=== PATIENT | female | born 1980 | race Caucasian/White ===

== ENCOUNTER 2017-01-02 02:15 | Inpatient (IN) | payer OTHER ==
[2017-01-02 02:16] VITALS: BMI 26.6
--- NOTE | 2017-01-02 02:46 | C.PDOC ---
History Of Present Illness pt was medically cleared at [facility] and was accepted in transfer by dr henley. patient pleasant and cooperative Time Seen by Provider: 01/02/17 02:43 Chief Complaint (Nursing): Psychiatric Evaluation History Per: Patient History/Exam Limitations: no limitations Onset/Duration Of Symptoms: Days Current Symptoms Are (Timing): Still Present Suicide/Self Injury Attempted (Context): None Modifying Factor(s): None Severity: Moderate Pain Scale Rating Of: 4 Associated Symptoms: Anxiety Involuntary Hold By: None Recent travel outside of the [place]: No Additional History Per: Patient, Family Past Medical History Reviewed: Historical Data, Nursing Documentation, Vital Signs Vital Signs: Last Vital Signs Temp 97.7 F 01/02/17 02:22 Pulse 91 H 01/02/17 02:22 Resp 16 01/02/17 02:22 BP 138/93 H 01/02/17 02:22 Pulse Ox 100 01/02/17 02:22 - Medical History PMH: Anxiety Denies: Depression Family History: States: No Known Family Hx - Social History Hx Tobacco Use: No Hx Alcohol Use: Yes Hx Substance Use: No Review Of Systems Constitutional: Negative for: Fever, Chills Cardiovascular: Negative for: Chest Pain Respiratory: Negative for: Shortness of Breath Gastrointestinal: Negative for: Nausea Genitourinary: Negative for: Hematuria Musculoskeletal: Negative for: Back Pain Skin: Negative for: Rash Neurological: Negative for: Weakness Psych: Positive for: Anxiety Physical Exam - Physical Exam Appears: Non-toxic, No Acute Distress Skin: Warm, Dry Chest: Symmetrical Cardiovascular: Rhythm Regular Respiratory: No Rales, No Rhonchi, No Wheezing Gastrointestinal/Abdominal: Soft, No Tenderness Extremity: Normal ROM Neurological/Psych: Oriented x3, Normal Speech, Normal Cognition Gait: Steady ED Course And Treatment O2 Sat by Pulse Oximetry: 100 Pulse Ox Interpretation: Normal Disposition Discussed With : Mitch Henley Comment: accepted the pt on his service and took over the care at 2:44 AM Doctor Will See Patient In The: Hospital Counseled Patient/Family Regarding: Studies Performed, Diagnosis - Disposition Disposition: HOSPITALIZED Disposition Time: 02:44 Condition: FAIR - POA Present On Arrival: None - Clinical Impression Clinical Impression: Anxiety Decision To Admit - Pt Status Changed To: Hospital Disposition Of: Inpatient - Admit Certification Admit to Inpatient:: After my assessment, the patient will require hospitalization for at least two midnights. This is because of the severity of symptoms shown, intensity of services needed, and/or the medical risk in this patient being treated as an outpatient. - InPatient: Physician Admission Certification: I certify that this patient requires 2 or more midnights of care for the following reason:: After my assessment, the patient will require hospitalization for at least two midnights. This is because of the severity of symptoms shown, intensity of services needed, and/or the medical risk in this patient being treated as an outpatient. - . Bed Request Type: Psychiatry Admitting Physician: Mitch Henley Patient Diagnosis: Anxiety
--- NOTE | 2017-01-02 18:08 | PCM.PSYCH ---
Initial Psychiatric Evaluation - Initial Psychiatric Evaluation Type of Admission: Voluntary Legal Status: Capacity Chief Complaint (in patient's own words): I was given poison someone. I think I will any minute. History of Present Illness and Precipitating Events: Patient is a 36 years old, , female with history of depression and ADHD was admitted for disorganized thoughts. It was very difficult to get history from the patient. Patient was very circumstantial. Her thoughts were revolving around different things. Patient needed frequent redirections to come back to the topic. Patient reported that she was depressed and the past and was getting some counseling. Patient reported that her problem is obesity. About 2 weeks ago she was started on Topamax by Dr. Hudson rhodes. Patient think that would Topamax she had some adverse affects. Patient also believed that she has some permanent braces for her teeth and the metal of the brace react with Topamax causing some kind of poison and this poison is killing her. Later patient reported that she think someone was giving her poison and she will any moment. Patient made and other statement that my thinks I'm a fraud. Couldn't elaborate further. His some moment patient appeared to speak to her, but appeared internally preoccupied. Patient also reported that she is depressed with decreased sleep and appetite. No further information was obtained. Patient provided number of her and her father. Called. The family provided some information that patient has history of depression for many years and in the past patient was on some antidepressives including Zoloft. Patient also has history of ADHD for that she was taking different medications including Concerta and Adderall in the past. Currently she is not on any medications because of no insurance. Family also reported that patient was stressed for last few days because of her marriage. Reported that 2 days ago patient came to visit family in [place] from [place] and according to family patient was thinking that her neighbors in the [place] her after her and also some undercover police officers are watching her. No one inflammations were obtained from the family. Current Medications: Active Medications Generic Name Dose Route Start Last Admin Trade Name Freq PRN Reason Stop Dose Admin Benztropine Mesylate 0.5 mg 01/02/17 18:00 01/02/17 17:19 Cogentin PO 0.5 mg BID SABINA Administration Haloperidol 5 mg 01/02/17 14:59 05/29/17 15:09 Haldol PO 5 mg Q6 PRN Administration Agitation Hydroxyzine HCl 25 mg 01/02/17 05:21 01/02/17 14:30 Atarax PO 25 mg Q4H PRN Administration Anxiety Lorazepam 1 mg 01/02/17 14:53 01/02/17 16:05 Ativan PO 1 mg Q6 PRN Administration Agitation Risperidone 1 mg 01/02/17 18:00 01/02/17 17:19 Risperdal Tab PO 1 mg BID SABINA Administration Trazodone HCl 50 mg 01/02/17 22:00 Desyrel PO HS SABINA Past Psychiatric History - Past Psychiatric History History of Abuse: None reported History of ETOH/Drug Use: None reported History of Family Illness: None reported Pertinent Medical Hx (Current Medical&Sleep Prob, Allergies): Allergies Allergy/AdvReac Type Severity Reaction Status Date / Time amphetamine [From Adderall] Allergy FATIGUE Verified 01/01/17 15:56 dextroamphetamine Allergy FATIGUE Verified 01/01/17 15:56 [From Adderall] Sulfa (Sulfonamide Allergy Verified 01/02/17 02:24 Antibiotics) topiramate [From Topamax] AdvReac DIZZINESS Verified 01/02/17 02:24 No Known Home Med 10/16/12 Review of Systems - Psychiatric Psychiatric: Paranoia Mental Status Examination - Personal Presentation Personal Presentation: Looks stated age - Affect Affect: Depressed - Motor Activity Motor Activity: Calm - Reliability in Providing Information Reliability in Providing Information: Poor, due to alteration in thoughts - Speech Speech: Disorganized, Tangential - Mood Mood: Depressed - Formal Thought Process Formal Thought Process: Delusions, Loosening of associations, Flight of ideas - Hallucinations/Delusions Hallucinations: Other (None reported) Delusions: Persecution - Obsessions/Compulsions Obsessions: None Compulsions: None - Cognitive Functions Orientation: Person, Place, Situation, Time Sensorium: Alert Attention/Concentration: Attentive Estimate of Intelligence: Average Judgement: Imparied, as evidence by: Lack of insight into illness Memory: Recent intact, as evidence by: Other, Remote intact, as evidenced by: Other - Risk Risk: Diminished functioning - Strength & Assets Inventory Strength & Assets Inventory: Family support, Cooperative - Limitations Limitations: Other DSM 5 DX - DSM 5 DSM 5 Diagnosis: Delusional disorder Provisional: Schizoaffective disorder - Recommended/Plan of Treatment Treatment Recommendations and Plan of Treatment: Patient education Supportive therapy We'll start Risperdal 1 mg twice a day Haldol 5 mg every 6 when necessary for agitation Ativan 1 mg by mouth every 6 when necessary for agitation/anxiety Atarax to 5 mg by mouth every 6 or anxiety Cogentin 0.5 mg twice a day Projected ELOS: 8-10 days - Smoking Cessation Smoking Cessation Initiated: No Reason for not providing: Patient doesn't smoke cigarettes
--- NOTE | 2017-01-03 09:54 | PCM.PYCHPN ---
Psychiatric Progress Note - Psychiatric Progress Note Patient seen today, length of contact: 20 min Patient Chief Complaint: 'People are trying to kill me. I am not usually like this, but people are evil.' Problems Identified/Issues Discussed: Patient is a 36 year old [place] woman with a history of depression and ADHD who lives with her in [place]. Patient does not work. History from patient was very difficult to retrieve due to her disorganized thinking, speech , and behavior. Pt states she is visiting her parents and siblings in [place] because her mother and brother were going to [facility] due to a in the family. Patient states she was also helping her mom with her Medicaid as it was expiring. Pt states she had a nervous breakdown due to a side effect of her medication. Pt states that she was gaining weight which was causing marital problems. She recieved Topmax from her family doctor for weight loss. Pt states "I know this is an anti-seizure drug so I knew I could have some side effects and I think I am having side effects of the anti-seizure medication because it can affect the brain." Patient states her hands felt clammy and that her head got an electrical shock. Patient believes she has metal wiring in her mouth and "if someone attaches electrodes to me, they could kill me." Pt seems very dazed and confused, is repeating words, and sitting with her eyes closed. Pt advised to lie down for a bit, at which she states, "If I close my eyes someone will come here and smother me with a pillow. People are evil. Why do I have to be so important? Why can't people just ignore me?" Patient very disorganized and very circumstantial and tangential. Pt does not portray an congruent train of thought. Pt repeats phrases and is internally preoccupied. Pt is very suspicious and paranoid that people want to hurt her and kill her. Medication Change: Yes (increase Risperdal, start gabapentin) Medical Record Reviewed: Yes Mental Status Examination - Cognitive Function Orientation: Person, Place, Situation, Time Memory: Intact Attention: Poor Concentration: Poor Association: Loose Fund of Knowledge: Poor - Mood Mood: Anxious - Affect Affect: Broad, Constricted - Speech Speech: Slurred, Stammering Additional comments: Repetitive - Formal Thought Process Formal Thought Process: Delusions, Paranoia, Loosening of associations, Flight of ideas, Circumstantial - Suicidal Ideation Suicidal Ideation: No - Homicidal Ideation Homicidal Ideation: No Goal/Treatment Plan - Goal/Treatment Plan Need for Continued Stay: Discharge may exacerbated symptoms, Severe functional impairment Progress Toward Problem(s) and Goals/Treatment Plan: Delusional disorder R/O Schizoaffective disorder depressed type Patient education Supportive therapy Risperdal 1 mg daily Risperdal 2 mg QHS Cogentin 0.5 mg twice a day Start Klonopin 1 mg twice a day Haldol 5 mg every 6 when necessary for agitation Ativan 1 mg by mouth every 6 when necessary for agitation/anxiety Atarax to 5 mg by mouth every 6 or anxiety - Smoking Cessation Smoking Cessation Initiated: No
--- NOTE | 2017-01-04 11:51 | PCM.PYCHPN ---
Psychiatric Progress Note - Psychiatric Progress Note Patient seen today, length of contact: 20 min Patient Chief Complaint: 'People are trying to kill me. I am not usually like this, but people are evil.' Problems Identified/Issues Discussed: Patient seen and evaluated, chart reviewed and discussed with the nurse. Patient remained disorganized and internally preoccupied. Patient remained isolated, confined and withdrawn. As per staff she is still talking to herself and appears internally preoccupied. Patient still appears paranoid and delusional. she reports anxiety and irritability, but reports improvement since yesterday. She is taking medication and denies any side effects. Supportive therapy and psychoeducation were given. Medication Change: Yes (increase Risperdal, start gabapentin) Medical Record Reviewed: Yes Mental Status Examination - Cognitive Function Orientation: Person, Place, Situation, Time Memory: Intact Attention: Poor Concentration: Poor Association: Loose Fund of Knowledge: Poor - Mood Mood: Anxious - Affect Affect: Broad, Constricted - Speech Speech: Slurred, Stammering - Formal Thought Process Formal Thought Process: Delusions, Paranoia, Loosening of associations, Flight of ideas, Circumstantial - Suicidal Ideation Suicidal Ideation: No - Homicidal Ideation Homicidal Ideation: No Goal/Treatment Plan - Goal/Treatment Plan Need for Continued Stay: Discharge may exacerbated symptoms, Severe functional impairment Progress Toward Problem(s) and Goals/Treatment Plan: Delusional disorder R/O Schizoaffective disorder depressed type Patient education Supportive therapy Risperdal 1 mg daily Risperdal 2 mg QHS Cogentin 0.5 mg twice a day Start Klonopin 1 mg twice a day Haldol 5 mg every 6 when necessary for agitation Ativan 1 mg by mouth every 6 when necessary for agitation/anxiety Atarax to 5 mg by mouth every 6 or anxiety gabapentin 100 mg by mouth 3 times a day
--- NOTE | 2017-01-05 14:10 | PCM.PYCHPN ---
Psychiatric Progress Note - Psychiatric Progress Note Patient seen today, length of contact: 20 min Patient Chief Complaint: People are out to get me Problems Identified/Issues Discussed: Patient seen and evaluated, chart reviewed and discussed with the nurse. Patient states that her mind is racing and she cannot control her thoughts and that her brain is "hyperactive". She feels scared that someone will try to kill her, saying, "If I , you have to know it was not a suicide. It was because someone murdered me. Make sure they don't snap my neck." Patient still displays suspicious and paranoid behavior, asking for a print out of the medications she is getting and their side effects. Patient states her family came to visit yesterday which went very well. Patient states on discharge, she plans to go back to [place] and follow up with a psychiatrist there. Patient participating in group therapy and talking to others. Supportive therapy and psychoeducation were given. Medication Change: Yes (increase trazodone, increase Risperdal) Medical Record Reviewed: Yes Mental Status Examination - Cognitive Function Orientation: Person, Place, Situation, Time Memory: Intact Attention: Poor Concentration: Poor Association: Loose Fund of Knowledge: Poor - Mood Mood: Anxious - Affect Affect: Broad, Constricted - Speech Speech: Slurred, Stammering - Formal Thought Process Formal Thought Process: Delusions, Paranoia, Loosening of associations, Flight of ideas, Circumstantial - Suicidal Ideation Suicidal Ideation: No - Homicidal Ideation Homicidal Ideation: No Goal/Treatment Plan - Goal/Treatment Plan Need for Continued Stay: Discharge may exacerbated symptoms, Severe functional impairment Progress Toward Problem(s) and Goals/Treatment Plan: Brief psychotic disorder Patient education Supportive therapy Risperdal 2 mg daily Risperdal 2 mg QHS Cogentin 1 mg twice a day Klonopin 1 mg twice a day Trazodone 100 mg by mouth daily at bedtime Gabapentin 300 mg by mouth 2 times a day Haldol 5 mg every 6 when necessary for agitation Ativan 1 mg by mouth every 6 when necessary for agitation/anxiety Atarax 25 mg by mouth every 6 or anxiety
--- NOTE | 2017-01-06 12:20 | PCM.PYCHPN ---
Psychiatric Progress Note - Psychiatric Progress Note Patient seen today, length of contact: 20 min Patient Chief Complaint: My mind is more clear and focused Problems Identified/Issues Discussed: Patient seen and evaluated, chart reviewed and discussed with the nurse. Patient states she is feeling better and that her thoughts are less racing. She denies any hallucinations. She feels less paranoid and acknowledges that her thoughts were "extreme." She is still fearful that someone might hurt her but is less paranoid. Patient states her thoughts are more focused and clear. Patient withdrew 48 notice and agrees to stay for further treatment. She is receptive to being discharged to her home in [place] and plans to follow up with [facility] for psychiatry. Patient's medications are being slowly increased to optimize her dosages. Supportive therapy and psychoeducation were given. Medication Change: Yes (increase Risperdal) Medical Record Reviewed: Yes Mental Status Examination - Cognitive Function Orientation: Person, Place, Situation, Time Memory: Intact Attention: Poor Concentration: Poor Association: Loose Fund of Knowledge: Poor - Mood Mood: Anxious - Affect Affect: Broad, Constricted - Speech Speech: Slurred, Stammering - Formal Thought Process Formal Thought Process: Delusions, Paranoia, Loosening of associations, Flight of ideas, Circumstantial - Suicidal Ideation Suicidal Ideation: No - Homicidal Ideation Homicidal Ideation: No Goal/Treatment Plan - Goal/Treatment Plan Need for Continued Stay: Discharge may exacerbated symptoms, Severe functional impairment Progress Toward Problem(s) and Goals/Treatment Plan: Brief psychotic disorder CBT Patient education Supportive therapy, individual therapy and milieu therapy Risperdal 2 mg daily Risperdal 4 mg QHS Cogentin 1 mg twice a day Klonopin 1 mg three times a day Trazodone 100 mg by mouth daily at bedtime Gabapentin 300 mg by mouth 3 times a day Haldol 5 mg every 6 when necessary for agitation Ativan 1 mg by mouth every 6 when necessary for agitation/anxiety Atarax 25 mg by mouth every 6 or anxiety - Smoking Cessation Smoking Cessation Initiated: No
--- NOTE | 2017-01-07 16:59 | PCM.PYCHPN ---
Psychiatric Progress Note - Psychiatric Progress Note Patient seen today, length of contact: 15 minutes Patient Chief Complaint: I'm feeling better. My thoughts are more clear Problems Identified/Issues Discussed: Patient seen. Chart reviewed. Case discussed with the staff. Issues related to illness and treatment were discussed with the patient. Reported compliant with treatment with no adverse affects. Tolerating treatment well. Patient appeared more clear in her thoughts but still delusional. Patient appeared drowsy. We will reduce dose of the Klonopin from 1 mg 3 times a day to 1 mg twice a day. At the time of evaluation, was awake alert oriented 3, no auditory or visual hallucinations, no suicidal ideations or homicidal ideations. Patient still has some persecutory delusions. Medical Problems: None reported Diagnostic Results: Reviewed DSM 5 Symptoms Update: Some improvement with treatment Medication Change: No Medical Record Reviewed: Yes Mental Status Examination - Cognitive Function Orientation: Person, Place, Situation, Time Memory: Intact Attention: WNL Concentration: WNL Association: WNL Fund of Knowledge: WNL Decription of patient's judgement and insights: Fair - Mood Mood: Anxious - Affect Affect: Other (Appropriate) - Speech Speech: Appropriate - Formal Thought Process Formal Thought Process: Loosening of associations, Flight of ideas - Suicidal Ideation Suicidal Ideation: No - Homicidal Ideation Homicidal Ideation: No Goal/Treatment Plan - Goal/Treatment Plan Need for Continued Stay: Remain at risks for inpatient hospitalization, Discharge may exacerbated symptoms, Severe functional impairment Progress Toward Problem(s) and Goals/Treatment Plan: Patient education Supportive therapy We will reduce the dose of Klonopin from 1 mg 3 times a day to 1 mg twice a day Continue rest of the treatment as before Estimated Date of D/C: 01/09/17 - Smoking Cessation Smoking Cessation Initiated: No Reason for not providing: Patient does not smokes cigarettes
--- NOTE | 2017-01-08 15:32 | PCM.PYCHPN ---
Psychiatric Progress Note - Psychiatric Progress Note Patient seen today, length of contact: 15 minutes Patient Chief Complaint: I'm feeling better. Problems Identified/Issues Discussed: Patient seen. Chart reviewed. Case discussed with the staff. Issues related to illness and treatment were discussed with the patient. Reported compliant with treatment with no adverse affects. Tolerating treatment well. Patient appeared more clear in her thoughts but still delusional.today patient appeared more talkative .staff also confirmed .Will observe and if necessary we'll change the gabapentin to another mood stabilizer. Patient was still preoccupied with medications and their side effects. ,At the time of evaluation, was awake alert oriented 3, no auditory or visual hallucinations, no suicidal ideations or homicidal ideations. Patient still has some persecutory delusions. Medical Problems: None reported Diagnostic Results: Reviewed DSM 5 Symptoms Update: Some improvement with treatment Medication Change: No Medical Record Reviewed: Yes Mental Status Examination - Cognitive Function Orientation: Person, Place, Situation, Time Memory: Intact Attention: WNL Concentration: WNL Association: WNL Fund of Knowledge: WN Decription of patient's judgement and insights: Fair - Mood Mood: Anxious - Affect Affect: Other (Appropriate) - Speech Speech: Appropriate - Formal Thought Process Formal Thought Process: Loosening of associations, Flight of ideas - Suicidal Ideation Suicidal Ideation: No - Homicidal Ideation Homicidal Ideation: No Goal/Treatment Plan - Goal/Treatment Plan Need for Continued Stay: Remain at risks for inpatient hospitalization, Discharge may exacerbated symptoms, Severe functional impairment Progress Toward Problem(s) and Goals/Treatment Plan: Patient education Supportive therapy Continue treatment as before Estimated Date of D/C: 01/09/17 - Smoking Cessation Smoking Cessation Initiated: No
--- NOTE | 2017-01-09 10:08 | PCM.PYCHPN ---
Psychiatric Progress Note - Psychiatric Progress Note Patient seen today, length of contact: 15 minutes Patient Chief Complaint: "I feel okay." Problems Identified/Issues Discussed: Patient seen and evaluated, chart reviewed and discussed with the nurse. The patient remained disorganized and internally preoccupied. She is still paranoid about her family that they are creating misunderstandings between her and her . She still appears delusional and suspicious. She appears more kempt but continued to have loose associations and hypertalkative. Patient participating in group therapy and talking to others. Supportive therapy and psychoeducation were given. Medication Change: Yes (start lithium) Medical Record Reviewed: Yes Mental Status Examination - Cognitive Function Orientation: Person, Place, Situation, Time Memory: Intact Attention: WNL Concentration: Poor Association: Loose Fund of Knowledge: WNL - Mood Mood: Anxious - Affect Affect: Flat - Speech Speech: Soft - Formal Thought Process Formal Thought Process: Delusions (monotonus ), Loosening of associations, Flight of ideas - Suicidal Ideation Suicidal Ideation: No - Homicidal Ideation Homicidal Ideation: No Goal/Treatment Plan - Goal/Treatment Plan Need for Continued Stay: Remain at risks for inpatient hospitalization, Discharge may exacerbated symptoms, Severe functional impairment Progress Toward Problem(s) and Goals/Treatment Plan: Brief psychotic disorder Patient education Supportive therapy Risperdal 2 mg daily Risperdal 4 mg QHS Cogentin 1 mg twice a day Klonopin 1 mg twice a day Trazodone 100 mg by mouth daily at bedtime Gabapentin 300 mg by mouth 2 times a day Daniel 300 mg by mouth 3 times a day Haldol 5 mg every 6 when necessary for agitation Ativan 1 mg by mouth every 6 when necessary for agitation/anxiety Atarax 25 mg by mouth every 6 or anxiety Estimated Date of D/C: 01/09/17 - Smoking Cessation Smoking Cessation Initiated: No
--- NOTE | 2017-01-10 15:54 | PCM.PYCHPN ---
Psychiatric Progress Note - Psychiatric Progress Note Patient seen today, length of contact: 15 minutes Patient Chief Complaint: "I feel okay." Problems Identified/Issues Discussed: Patient seen and evaluated, chart reviewed and discussed with the nurse. As per the staff, pt became increasingly delusional and suspicious. She is still paranoid about her family that they are creating misunderstandings between her and her . zed and internally preoccupied.She still appears delusional and suspicious. She appears more kempt but continued to have loose associations and hypertalkative. Patient participating in group therapy and talking to others. Supportive therapy and psychoeducation were given. Medication Change: Yes (start lithium) Medical Record Reviewed: Yes Mental Status Examination - Cognitive Function Orientation: Person, Place, Situation, Time Memory: Intact Attention: WNL Concentration: WNL Association: WNL Fund of Knowledge: WNL - Mood Mood: Anxious - Affect Affect: Flat - Speech Speech: Soft - Formal Thought Process Formal Thought Process: Loosening of associations, Flight of ideas - Suicidal Ideation Suicidal Ideation: No - Homicidal Ideation Homicidal Ideation: No Goal/Treatment Plan - Goal/Treatment Plan Need for Continued Stay: Remain at risks for inpatient hospitalization, Discharge may exacerbated symptoms, Severe functional impairment Progress Toward Problem(s) and Goals/Treatment Plan: Brief psychotic disorder Patient education Supportive therapy Risperdal 2 mg daily Risperdal 4 mg QHS Cogentin 1 mg twice a day Klonopin 1 mg twice a day Trazodone 100 mg by mouth daily at bedtime Gabapentin 300 mg by mouth 2 times a day [place] 300 mg by mouth 3 times a day Haldol 5 mg every 6 when necessary for agitation Ativan 1 mg by mouth every 6 when necessary for agitation/anxiety Atarax 25 mg by mouth every 6 or anxiety Estimated Date of D/C: 01/09/17
[2017-01-11] MEDS ORDERED: Lithium Carbonate 150 MG CAP PO SCH (10:00)
--- NOTE | 2017-01-11 10:00 | PCM.PYCHPN ---
Psychiatric Progress Note - Psychiatric Progress Note Patient seen today, length of contact: 15 minutes Patient Chief Complaint: "I feel great." Problems Identified/Issues Discussed: Patient seen and evaluated, chart reviewed and discussed with the nurse. The patient states that she feels great and is no longer sad or depressed. She complains of a little bit of anxiety but says that the groups have helped. She says that she slept well last night and woke up refreshed early this morning. She denies any auditory or visual hallucinations, S/I, or H/I. 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 She says that she is charged with emotions and feels that she hasnt been true to herself. She states that she wants to go home to her in [place] and appears to not have grasped the reality of being from him. She appears to still be very disorganized with her thoughts and is hypertalkative. She is fixated on her , family, and medical school and is very paranoid about her healthcare. She has a flat affect but less depressed mood and continues to have loose associations. She appears to be kempt and puts effort into her appearance. She does not isolate herself and interacts daily with other patients. Patient participating in group therapy and talking to others. Supportive therapy and psychoeducation were given. Medication Change: Yes (increase lithium) Medical Record Reviewed: Yes Mental Status Examination - Cognitive Function Orientation: Person, Place, Situation, Time Memory: Intact Attention: WNL Concentration: Poor Association: Loose Fund of Knowledge: WNL - Mood Mood: Depressed, Anxious - Affect Affect: Constricted, Depressed - Speech Speech: Loud (labile), Soft - Formal Thought Process Formal Thought Process: Delusions, Paranoia, Loosening of associations, Flight of ideas - Suicidal Ideation Suicidal Ideation: No - Homicidal Ideation Homicidal Ideation: No Goal/Treatment Plan - Goal/Treatment Plan Need for Continued Stay: Remain at risks for inpatient hospitalization, Discharge may exacerbated symptoms, Severe functional impairment Progress Toward Problem(s) and Goals/Treatment Plan: Brief psychotic disorder Patient education Supportive therapy Risperdal 2 mg daily Risperdal 4 mg QHS Cogentin 1 mg twice a day Klonopin 1 mg twice a day Trazodone 100 mg by mouth daily at bedtime Gabapentin 300 mg by mouth 2 times a day [place] 450 mg by mouth 2 times a day Haldol 5 mg every 6 when necessary for agitation Ativan 1 mg by mouth every 6 when necessary for agitation/anxiety Atarax 25 mg by mouth every 6 or anxiety Estimated Date of D/C: 01/09/17 - Smoking Cessation Smoking Cessation Initiated: No
[2017-01-11] MEDS: Lithium Carbonate ER Tab 450 MG PO SCH ×2 (12:13→18:25)
[2017-01-11] MEDS ORDERED: Lithium Carbonate ER Tab 450 MG PO SCH (18:00)
[2017-01-12] MEDS: Lithium Carbonate ER Tab 450 MG PO SCH ×2 (10:17→17:36)
--- NOTE | 2017-01-12 11:38 | PCM.PYCHPN ---
Psychiatric Progress Note - Psychiatric Progress Note Patient seen today, length of contact: 15 minutes Patient Chief Complaint: "I feel aggravated." Problems Identified/Issues Discussed: Patient seen and evaluated, chart reviewed and discussed with the nurse. The patient states that she is feeling aggravated and anxious because she might have missed a job opportunity. She states that because she isn't allowed access to her cellphone, she missed a call for a job she would've taken. She also states that she is upset because she had to break her fast. She denies H/I, S/I , or hallucinations. She says that she is sleeping very well and the medications are helping her. She denies feelings of depression but is still feeling guilty. She is still really paranoid, hypertalkative and disorganized in her thoughts. She appears kempt and continues to put effort into her appearance. She socializes with the other patients and behaves compassionately to her roommate. Patient participating in group therapy and talking to others. Supportive therapy and psychoeducation were given. Medication Change: Yes (start haldol) Medical Record Reviewed: Yes Mental Status Examination - Cognitive Function Orientation: Person, Place, Situation, Time Memory: Intact Attention: WNL Concentration: Poor Association: Loose Fund of Knowledge: WNL - Mood Mood: Depressed, Anxious - Affect Affect: Constricted, Depressed - Speech Speech: Loud (labile) - Formal Thought Process Formal Thought Process: Delusions, Paranoia, Loosening of associations, Flight of ideas - Suicidal Ideation Suicidal Ideation: No - Homicidal Ideation Homicidal Ideation: No Goal/Treatment Plan - Goal/Treatment Plan Need for Continued Stay: Remain at risks for inpatient hospitalization, Discharge may exacerbated symptoms, Severe functional impairment Progress Toward Problem(s) and Goals/Treatment Plan: Brief psychotic disorder Patient education Supportive therapy Risperdal 2 mg daily Risperdal 4 mg QHS Haldol 5 mg by mouth twice Cogentin 1 mg twice a day Klonopin 1 mg twice a day Trazodone 100 mg by mouth daily at bedtime Gabapentin 300 mg by mouth 2 times a day [place] 450 mg by mouth 2 times a day Haldol 5 mg every 6 when necessary for agitation Ativan 1 mg by mouth every 6 when necessary for agitation/anxiety Atarax 25 mg by mouth every 6 or anxiety Estimated Date of D/C: 01/09/17
[2017-01-13 07:08] VITALS: RESP 18
[2017-01-13] MEDS: Lithium Carbonate ER Tab 450 MG PO SCH ×2 (09:56→17:19)
--- NOTE | 2017-01-13 11:43 | PCM.PYCHPN ---
Psychiatric Progress Note - Psychiatric Progress Note Patient seen today, length of contact: 15 minutes Patient Chief Complaint: "I'm not doing well." Problems Identified/Issues Discussed: Patient seen and evaluated, chart reviewed and discussed with the nurse. The patient states that she is not doing well. She says that she slept the entire night and feels disappointed in herself for not waking up early today. She states that she's been having strange dreams because she is afraid of losing her loved ones. She also says that she wishes to go home because she can' t afford to stay at the hospital for so long. She denies feeling depressed but says she feels guilty because she is unemployed and is always asking her family for money. She states that she is still motivated and has interest in daily activities. She continues to be extremely hypertlakative and has disorganized speech. She is very fixated and paranoid about losing weight and becoming employed in order to save her marriage. She continues to put effort into her appearance and interacts with the other patients. Supportive therapy and psychoeducation were given. Medication Change: Yes (Increase haldol, reduce Risperdal) Medical Record Reviewed: Yes Mental Status Examination - Cognitive Function Orientation: Person, Place, Situation, Time Memory: Intact Attention: WNL Concentration: Poor Association: Loose Fund of Knowledge: Poor - Mood Mood: Anxious - Affect Affect: Constricted - Speech Speech: Loud (labile) - Formal Thought Process Formal Thought Process: Delusions, Paranoia, Loosening of associations, Flight of ideas - Suicidal Ideation Suicidal Ideation: No - Homicidal Ideation Homicidal Ideation: No Goal/Treatment Plan - Goal/Treatment Plan Need for Continued Stay: Remain at risks for inpatient hospitalization, Discharge may exacerbated symptoms, Severe functional impairment Progress Toward Problem(s) and Goals/Treatment Plan: Brief psychotic disorder Patient education Supportive therapy Risperdal 2 mg po BID Haldol 10 mg by mouth twice daily Cogentin 1 mg twice a day Klonopin 1 mg twice a day Trazodone 100 mg by mouth daily at bedtime Gabapentin 300 mg by mouth 2 times a day [place] 450 mg by mouth 2 times a day Haldol 5 mg every 6 when necessary for agitation Ativan 1 mg by mouth every 6 when necessary for agitation/anxiety Atarax 25 mg by mouth every 6 or anxiety Estimated Date of D/C: 01/09/17 - Smoking Cessation Smoking Cessation Initiated: No
[2017-01-14 07:16] VITALS: O2SAT 95
[2017-01-14] MEDS: Lithium Carbonate ER Tab 450 MG PO SCH ×2 (09:48→21:40)
--- NOTE | 2017-01-14 09:57 | PCM.PYCHPN ---
Psychiatric Progress Note - Psychiatric Progress Note Patient seen today, length of contact: 15 minutes Patient Chief Complaint: "I'm not doing well." Problems Identified/Issues Discussed: Patient seen and evaluated, chart reviewed and discussed with the nurse. The patient states that she is not doing well. She says that she slept the entire night and feels disappointed in herself for not waking up early today. She states that she's been having strange dreams because she is afraid of losing her loved ones. She also says that she wishes to go home because she can' t afford to stay at the hospital for so long. She denies feeling depressed but says she feels guilty because she is unemployed and is always asking her family for money. She states that she is still motivated and has interest in daily activities. She continues to be extremely hypertlakative and has disorganized speech. She is very fixated and paranoid about losing weight and becoming employed in order to save her marriage. She continues to put effort into her appearance and interacts with the other patients. Spoke with the father # [phone] and brother # [phone]. Supportive therapy and psychoeducation were given. Medication Change: Yes (Increase haldol, reduce Risperdal) Medical Record Reviewed: Yes Mental Status Examination - Cognitive Function Orientation: Person, Place, Situation, Time Memory: Intact Attention: WNL Concentration: Poor Association: Loose Fund of Knowledge: Poor - Mood Mood: Anxious - Affect Affect: Constricted - Speech Speech: Loud (labile) - Formal Thought Process Formal Thought Process: Delusions, Paranoia, Loosening of associations, Flight of ideas - Suicidal Ideation Suicidal Ideation: No - Homicidal Ideation Homicidal Ideation: No Goal/Treatment Plan - Goal/Treatment Plan Need for Continued Stay: Remain at risks for inpatient hospitalization, Discharge may exacerbated symptoms, Severe functional impairment Progress Toward Problem(s) and Goals/Treatment Plan: Brief psychotic disorder Patient education Supportive therapy Risperdal 2 mg po BID Haldol 10 mg by mouth twice daily Cogentin 1 mg twice a day Klonopin 1 mg twice a day Trazodone 100 mg by mouth daily at bedtime Gabapentin 300 mg by mouth 2 times a day [place] 450 mg by mouth 2 times a day Haldol 5 mg every 6 when necessary for agitation Ativan 1 mg by mouth every 6 when necessary for agitation/anxiety Atarax 25 mg by mouth every 6 or anxiety Estimated Date of D/C: 01/09/17
[2017-01-15] MEDS: Lithium Carbonate ER Tab 450 MG PO SCH (09:41)
--- NOTE | 2017-01-16 11:21 | PCM.PYCHPN ---
Psychiatric Progress Note - Psychiatric Progress Note Patient seen today, length of contact: 15 minutes Patient Chief Complaint: "I feel great." Problems Identified/Issues Discussed: Patient seen and evaluated, chart reviewed and discussed with the nurse. The patient states that she is feeling great and wishes to be discharged to [facility] today. She denies any hallucinations, S/I, or H/I. However, she complains of anxiety from being around the other patients and feels they are having a negative effect on her. She states that she couldnt sleep because of them as well. She says that she is compliant with only some of her medications because she felt that she was being overmedicated. She says that some of the medications make her feel doped up. However, she agreed to receive a Haldol injection before being discharged tomorrow. She continues to be hypertalkative and has slightly disorganized speech. She appears to be doing better but is still a bit anxious and delusional about her divorce and going home to her . She continues to be kempt, interacts with the other patients, and speaks with appropriate affect. Supportive therapy and psychoeducation were given. Medication Change: Yes (Haldol Decanoate, reduce risperdal) Medical Record Reviewed: Yes Mental Status Examination - Cognitive Function Orientation: Person, Place, Situation, Time Memory: Intact Attention: WNL Concentration: Poor Association: Loose Fund of Knowledge: Poor - Mood Mood: Anxious - Affect Affect: Constricted - Speech Speech: Loud (labile) - Formal Thought Process Formal Thought Process: Delusions, Paranoia, Loosening of associations, Flight of ideas - Suicidal Ideation Suicidal Ideation: No - Homicidal Ideation Homicidal Ideation: No Goal/Treatment Plan - Goal/Treatment Plan Need for Continued Stay: Remain at risks for inpatient hospitalization, Discharge may exacerbated symptoms, Severe functional impairment Progress Toward Problem(s) and Goals/Treatment Plan: Brief psychotic disorder Patient education Supportive therapy Risperdal 1 mg po BID Haldol 10 mg by mouth twice daily Haldol Dec[place] 50 mg IM stat Cogentin 1 mg twice a day Klonopin 1 mg twice a day Trazodone 100 mg by mouth daily at bedtime Gabapentin 300 mg by mouth 2 times a day [place] 450 mg by mouth 2 times a day Haldol 5 mg every 6 when necessary for agitation Ativan 1 mg by mouth every 6 when necessary for agitation/anxiety Atarax 25 mg by mouth every 6 or anxiety Estimated Date of D/C: 01/09/17
--- NOTE | 2017-01-17 09:55 | PCM.PYCHPN ---
Psychiatric Progress Note - Psychiatric Progress Note Patient seen today, length of contact: 15 minutes Patient Chief Complaint: "I m feeling excited." Problems Identified/Issues Discussed: Patient seen and evaluated, chart reviewed and discussed with the nurse. The patient states that she is feeling excited about leaving today. She says that she has a good appetite and was able to sleep last night after taking Trazodone and Benadryl. She states that she has anxiety about the discharge process but wants to go home because she misses her . She says that she spoke to her last night and he said that hes moving in with his parents for about a month. She says that her wants her to lose weight and get a job before they can get back together. She states that she is compliant with her medications and is having no side effects. She denies S/I, H/ I, or hallucinations. The patient was upset after hearing that she would not be discharged today and wanted to invoke her patient rights. She stated that the patients here are worsening her anxiety and that she no longer wishes to stay here. However, after some discussion with her and her brother, she agreed to stay and continue with the Haldol shots. She continues to be hypertalkative but is doing much better. She is much calmer and motivated to get back to her life. She has appropriate affect and is kempt. However, she still seems delusional about having a relationship with her . Had a family meeting today with the brother. Supportive therapy and psychoeducation were given. Medication Change: Yes (Haldol Decanoate, discontinue risperdal) Medical Record Reviewed: Yes Mental Status Examination - Cognitive Function Orientation: Person, Place, Situation, Time Memory: Intact Attention: WNL Concentration: WNL Association: Loose Fund of Knowledge: WNL - Mood Mood: Anxious - Affect Affect: Other (Labile) - Speech Speech: Appropriate - Formal Thought Process Formal Thought Process: Delusions, Loosening of associations - Suicidal Ideation Suicidal Ideation: No - Homicidal Ideation Homicidal Ideation: No Goal/Treatment Plan - Goal/Treatment Plan Need for Continued Stay: Remain at risks for inpatient hospitalization, Discharge may exacerbated symptoms, Severe functional impairment Progress Toward Problem(s) and Goals/Treatment Plan: Brief psychotic disorder Patient education Supportive therapy D/C Risperdal 1 mg po BID Haldol 10 mg by mouth twice daily Haldol [place] 50 mg IM stat - next due Haldol Decanoate 50 +50 = 100 mg I/M ( 02-15-17) Cogentin 2 mg twice a day Trazodone 100 mg by mouth daily at bedtime [place] 600 mg by mouth 2 times a day Haldol 5 mg every 6 when necessary for agitation Ativan 1 mg by mouth every 6 when necessary for agitation/anxiety Atarax 25 mg by mouth every 6 or anxiety Estimated Date of D/C: 01/09/17 - Smoking Cessation Smoking Cessation Initiated: No
[2017-01-17 10:41] VITALS: TEMP 98
[2017-01-18 07:36] VITALS: BP 93/60; PULSE 90
--- NOTE | 2017-01-18 10:25 | PCM.PYCHDC ---
Mental Status Examination - Mental Status Examination Orientation: Person, Place, Situation, Time Memory: Intact Mood: Neutral Affect: Constricted Speech: Soft Attention: WNL Concentration: WNL Association: WNL Fund of Knowledge: WNL Formal Thought Process: No Impairment Description of patient's judgement and insight: good, fair Psychotic Thoughts and Behaviors: denies any AVH Suicidal Ideation: No Current Homicidal Ideation?: No Discharge Summary - Discharge Note Reason for Hospitalization: Patient is a 36 years old, , female with history of depression and ADHD was admitted for disorganized thoughts. It was very difficult to get history from the patient. Patient was very circumstantial. Her thoughts were revolving around different things. Patient needed frequent redirections to come back to the topic. Patient reported that she was depressed and the past and was getting some counseling. Patient reported that her problem is obesity. About 2 weeks ago she was started on Topamax by Dr. Hudson rhodes. Patient think that would Topamax she had some adverse affects. Patient also believed that she has some permanent braces for her teeth and the metal of the brace react with Topamax causing some kind of poison and this poison is killing her. Later patient reported that she think someone was giving her poison and she will any moment. Patient made and other statement that my thinks I'm a fraud. Couldn't elaborate further. His some moment patient appeared to speak to her, but appeared internally preoccupied. Patient also reported that she is depressed with decreased sleep and appetite. No further information was obtained. Patient provided number of her and her father. Called. The family provided some information that patient has history of depression for many years and in the past patient was on some antidepressives including Zoloft. Patient also has history of ADHD for that she was taking different medications including Concerta and Adderall in the past. Currently she is not on any medications because of no insurance. Family also reported that patient was stressed for last few days because of her marriage. Reported that 2 days ago patient came to visit family in [place] from [place] and according to family patient was thinking that her neighbors in the [place] her after her and also some undercover police officers are watching her. No one inflammations were obtained from the family. Consultations:: List each consultation separately and include: 1. Reason for request. 2. Findings. 3. Follow-up Summary of Hospital Course include:: 1. Description of specific treatment plan utilized for patients during their course of treatmen. 2. Summarize the time- course for resolution of acute symptoms and/or regressed behaviors. 3. Describe issues identified and worked on during hospitalization. 4. Describe medication utilized. 5. Describe medical problems identified and treated. 6. Reassessment of suicide risk Summary of Hospital Course: During the course of her stay, patient (pt) started progressively improving and she no longer remained irritable, anxious and paranoid. Her mood and paranoia were improved and she started attending groups and meetings and started socializing. Patient denied any feelings of hopelessness, helplessness, and worthlessness, denied any problem with the sleep or appetite, denied suicidal ideation or homicidal ideation. Pt denied any auditory or visual hallucinations. Some changes were made in her current medications and patient was discharged on following medications. She tolerated these medications very well and denied any side effects. - Final Diagnosis (DSM 5) Condition upon Discharge: FAIR DSM 5: Brief psychotic disorder Disposition: HOME/ ROUTINE Follow-up Treatment Plan: Education: Pt was educated and counseled about the risks and benefits of taking and not taking medications. Pt was educated and counseled about the risks of drinking and abusing drugs. Pt was educated and counseled to go to the ER or call 911 if pt develop suicidal ideation or homicidal ideation, worsening of symptoms or severe side effects of the meds. Prescriptions/Medication Reconciliation: Benztropine [Cogentin] 1 mg PO BID #60 tab Haloperidol [Haldol] 10 mg PO BID #60 tab [place] Carbonate [[place] Carbonate 300MG] 600 mg PO BID #60 cap traZODone [Desyrel] 100 mg PO HS #30 tab - Smoking Cessation Smoking Cessation Medication prescribed: No - Antipsychotic Medications Pt discharged on 2 or more routine antipsychotic medications: No
== END 2017-01-18 12:40 | disposition home or self-care (01) | DRG 885 ==
LOC: C.ER 02:15 → C.5E 02:46
PROC: GZ56ZZZ Individual Psychotherapy, Supportive (ICD-10-PCS; principal; 2017-01-02)
DX: F23 Brief psychotic disorder (principal); F22 Delusional disorders; F32.9 Major depressive disorder, single episode, unspecified; F90.9 Attention-deficit hyperactivity disorder, unspecified type